=== PATIENT | female | born 1995 | race Hispanic/Latino ===

== ENCOUNTER → 2016-03-16 | Outpatient (CLI) | payer SELFPAY ==
[2016-03-16 09:43] LABS: HEMATOCRIT 32.7 % (37.0-47.0); HEMOGLOBIN 10.8 g/dL (12.0-16.0); MEAN CORPUSCULAR HEMOGLOBIN 29.2 PG (27-31); MEAN PLATELET VOLUME 10.2 FL (7.4-12.2); RDW COEFFICIENT OF VARIATION 13.1 % (11.5-14.5); RED BLOOD COUNT 3.7 10^6/uL (4.20-5.40); WHITE BLOOD COUNT 7.83 10^3/uL (4.8-10.8)
== END ==
LOC: LAB 08:00
PROVIDERS: ATTEND Student in an Organized Health Care Education/Training Program
DX: Z34.02 Encounter for supervision of normal first pregnancy, second trimester (principal); Z3A.27 27 weeks gestation of pregnancy
CPT/HCPCS: 36415; 82950; 85027

== ENCOUNTER → 2016-03-20 | Outpatient (CLI) | payer OTHER ==
--- NOTE | 2016-03-23 21:17 | DI ---
LIMITED OBSTETRICAL ULTRASOUND WITH DONAVAN AND CORD DOPPLER ULTRASOUND, 03/20/2016 12:46 PM Clinical History: size inconsistent with dates in the third trimester. Small for dates. Previous Exam: 10/16/2015; 11/04/2015; and 01/29/2016. ADJUSTED LMP: 09/06/2015. There is a single live IUP currently in breech presentation. Amnionic fluid content is normal. Amniot ic fluid index is 13.4 cm. activity is observed as follows: Cardiac and extremity. The placenta is anterior corpus and Grade 1. heart rate varies between 133-149 beats/minute over a duration of approximately 10 minutes. Cord Doppler ultrasound shows diastolic flow. Systolic/diastolic ratios are 3.7, 3.1, and 3.2. BPD, HC, AC, and FL measurements are 75 mm, 268 mm, 238 mm, and 53 mm, respec tively. These measurements correspond to EGA values of 30 weeks 1 day, 29 weeks 2 days, 28 weeks 1 da y, and 28 weeks 2 days, respectively. Composite EGA is 29 weeks 0 days. The [place] EDC is 06/05/2016. EDC by adjusted LMP is 06/12/2016. LMP percentile is 51%. Estimated weight is 1215 g, plus or minus, 171 g. Readin. Single live fetus with breech presentation and normal amniotic fluid content. Amniotic fluid inde x is 13.4 cm. Placenta is anterior corpus and grade 1. 2. The composite EGA is 29 weeks 0 days with an ultrasound EDC of 06/05/2016. The EDC is 06/12/2016 bas ed on the adjusted LMP of 09/06/2015. 3. Cord Doppler ultrasound is normal. 4. LMP percentile is 51% and the estimated weight is 1215 g, plus or minus, 171 g.
== END ==
LOC: US 12:41
PROVIDERS: ATTEND Student in an Organized Health Care Education/Training Program
DX: O26.843 Uterine size-date discrepancy, third trimester (principal); Z3A.28 28 weeks gestation of pregnancy
CPT/HCPCS: 76815